=== PATIENT | female | born 1930 | race American Indian/Alaskan Native ===

== ENCOUNTER 2018-08-27 18:48 | Emergency (ER) | payer MEDICARE, MEDICAID ==
[2018-08-27 19:32] VITALS: BP 161/65
[2018-08-27] MEDS ORDERED: Ondansetron 4 MG/2 ML SDV IV ONE (20:03)
[2018-08-27] MEDS ORDERED: Sodium Chloride 0.9% 1,000 ML IV ONE (20:03)
[2018-08-27 20:22] LABS: ANION GAP 20.5; CHLORIDE,CL 93 mmol/L (101-111); SODIUM,NA 133 mmol/L (135-145)
--- NOTE | 2018-08-27 21:17 | EDM.PDOC ---
ED HPI GENERAL MEDICAL PROBLEM - General Chief Complaint: Gastrointestinal Problem Stated Complaint: THROWING UP Time Seen by Provider: 08/27/18 19:10 Source of Information: Reports: Patient, Family History Limitations: Reports: No Limitations - History of Present Illness INITIAL COMMENTS - FREE TEXT/NARRATIVE: ED with c/o nausea and vomiting multiple times today, unable to keep even liquids down. 2 loose stools No blood noted in emesis or stool. No fever, some chills today. No chest pain, Denied lower abdominal pain. Only hurts from vomiting. No urinary sx. Patient lives alone. [email or web address] stops in to check on patient. - Related Data Allergies Allergy/AdvReac Type Severity Reaction Status Date / Time No Known Allergies Allergy Verified 11/05/13 18:13 Home Meds: Home Meds Atenolol [Tenormin] 100 mg PO DAILY 11/05/13 [History] Simvastatin 10 mg PO DAILY 11/05/13 [History] Amitriptyline [Elavil] 10 mg PO BEDTIME 08/27/18 [History] Furosemide 20 mg PO TID 08/27/18 [History] Potassium Chloride [Klor-Con 10] 20 meq PO DAILY 08/27/18 [History] rOPINIRole [Requip] 0.5 mg PO TID 08/27/18 [History] Past Medical History - Past Health History Medical/Surgical History: Denies Medical/Surgical History Cardiovascular History: Reports: Hypertension Musculoskeletal History: Reports: Arthritis, Osteoporosis - Past Surgical History Cardiovascular Surgical History: Reports: None Musculoskeletal Surgical History: Reports: None Social & Family History - Family History Family Medical History: Noncontributory ED ROS GENERAL - Review of Systems Review Of Systems: See Below Constitutional: Reports: Chills, Decreased Appetite HEENT: Reports: Glasses, Hearing Loss Cardiovascular: Denies: Chest Pain, Dyspnea on Exertion, Edema, Palpitations GI/Abdominal: Reports: Anorexia, Decreased Appetite, Nausea, Vomiting. Denies: Black Stool, Bloody Stool, Constipation, Diarrhea, Distension : Reports: No Symptoms Musculoskeletal: Reports: No Symptoms Skin: Reports: No Symptoms Neurological: Reports: Dizziness (with sitting from lying today). Denies: Headache, Paresthesia ED EXAM, GI/ABD - Physical Exam Exam: See Below Exam Limited By: No Limitations General Appearance: Alert, No Apparent Distress Eyes: Bilateral: EOMI Ears: Normal External Exam, Normal TMs, Hearing Loss Nose: Normal Inspection Throat/Mouth: Other (dry mucus membranes) Head: Atraumatic, Normocephalic Neck: Normal Inspection Respiratory/Chest: No Respiratory Distress, Lungs Clear, Normal Breath Sounds Cardiovascular: Normal Peripheral Pulses, Regular Rate, Rhythm GI/Abdominal Exam: Soft, Tender (mild lower with palpation). No: Distended, Guarding, Rebound Back Exam: No: CVA Tenderness (L), CVA Tenderness (R) Extremities: Normal Range of Motion Neurological: Alert, Oriented, Normal Cognition Psychiatric: Normal Affect, Normal Mood Skin Exam: Warm, Dry, Intact, Normal Color Course - Vital Signs Last Recorded V/S: Last Vital Signs Temp 97.8 F 08/27/18 19:00 Pulse 85 08/27/18 19:00 Resp 18 08/27/18 19:00 BP 161/65 H 08/27/18 19:00 Pulse Ox 95 08/27/18 19:00 Orthostatic Blood Pressure [ 162/67 Standing] Orthostatic Blood Pressure [ 159/58 Sitting] Orthostatic Blood Pressure [ 156/56 Supine] - Orders/Labs/Meds Orders: Active Orders 24 hr Category Date Time Status EKG Documentation Completion [RC] URGENT Care 08/27/18 19:36 Active Orthostatic Vital Signs [RC] ASDIRECTED Care 08/27/18 20:26 Active CULTURE URINE [RM] Urgent Lab 08/27/18 21:24 Received Labs: Laboratory Tests 08/27/18 08/27/18 08/27/18 Range/Units 19:53 19:53 19:53 WBC 16.0 H (5.0-10.0) 10^3/uL RBC 3.82 L (4.2-5.4) 10^6/uL Hgb 11.7 L (12.0-16.0) g/dL Hct 35.1 L (37.0-47.0) % MCV 91.9 D (80-100) fL MCH 30.6 (27.0-34.0) pg MCHC 33.3 (33.0-35.0) g/dL Plt Count 269 D (150-450) 10^3/uL Neut % (Auto) 95.0 H (42.2-75.2) % Lymph % (Auto) 3.5 L (20.5-50.1) % [place] % (Auto) 1.4 L (2-8) % Eos % (Auto) 0.0 L (1.0-3.0) % Baso % (Auto) 0.1 (0.0-1.0) % Sodium 133 L (135-145) mmol/L Potassium 3.5 L (3.6-5.0) mmol/L Chloride 93 L (101-111) mmol/L Carbon Dioxide 23.0 (21.0-31.0) mmol/L Anion Gap 20.5 BUN 20 H (7-18) mg/dL Creatinine 1.7 H (0.6-1.3) mg/dL Est Cr Clr Drug Dosing 16.43 mL/min Estimated GFR (MDRD) 28 BUN/Creatinine Ratio 11.76 Glucose 179 H (74-105) mg/dL Calcium 8.5 (8.4-10.2) mg/dl Total Bilirubin 0.9 (0.2-1.0) mg/dL AST 42 (10-42) IU/L ALT 18 (10-60) IU/L Alkaline Phosphatase 86 (42-121) IU/L CK-MB (CK-2) 1.20 (0.4-4.7) ng/mL Troponin I < 0.02 (0.00-0.02) ng/ml B-Natriuretic Peptide 454 H (0-100) pg/ml Total Protein 8.5 H (6.7-8.2) g/dl Albumin 3.7 (3.2-5.5) g/dl Globulin 4.8 Albumin/Globulin Ratio 0.77 Amylase 46 (28-100) U/L Lipase 25 (22-51) U/L Urine Color (YELLOW) Urine Appearance (CLEAR) Urine pH (5.0-9.0) Ur Specific [place] (1.005-1.030) Urine Protein (NEGATIVE) Urine Glucose (UA) (NEGATIVE) Urine Ketones (NEGATIVE) Urine Occult Blood (NEGATIVE) Urine Nitrite (NEGATIVE) Urine Bilirubin (NEGATIVE) Urine Urobilinogen (0.2-1.0) mg/dL Ur Leukocyte Esterase (NEGATIVE) Urine RBC /HPF Urine WBC (0-5/HPF) /HPF Ur Epithelial Cells (NOT SEEN) /HPF Amorphous Sediment (NOT SEEN) /HPF Urine Bacteria (0-FEW/HPF) /HPF Fine Granular Casts (NOT SEEN) /LPF Urine Mucus (NOT SEEN) /LPF 08/27/18 Range/Units 21:24 WBC (5.0-10.0) 10^3/uL RBC (4.2-5.4) 10^6/uL Hgb (12.0-16.0) g/dL Hct (37.0-47.0) % MCV (80-100) fL MCH (27.0-34.0) pg MCHC (33.0-35.0) g/dL Plt Count (150-450) 10^3/uL Neut % (Auto) (42.2-75.2) % Lymph % (Auto) (20.5-50.1) % [place] % (Auto) (2-8) % Eos % (Auto) (1.0-3.0) % Baso % (Auto) (0.0-1.0) % Sodium (135-145) mmol/L Potassium (3.6-5.0) mmol/L Chloride (101-111) mmol/L Carbon Dioxide (21.0-31.0) mmol/L Anion Gap BUN (7-18) mg/dL Creatinine (0.6-1.3) mg/dL Est Cr Clr Drug Dosing mL/min Estimated GFR (MDRD) BUN/Creatinine Ratio Glucose (74-105) mg/dL Calcium (8.4-10.2) mg/dl Total Bilirubin (0.2-1.0) mg/dL AST (10-42) IU/L ALT (10-60) IU/L Alkaline Phosphatase (42-121) IU/L CK-MB (CK-2) (0.4-4.7) ng/mL Troponin I (0.00-0.02) ng/ml B-Natriuretic Peptide (0-100) pg/ml Total Protein (6.7-8.2) g/dl Albumin (3.2-5.5) g/dl Globulin Albumin/Globulin Ratio Amylase (28-100) U/L Lipase (22-51) U/L Urine Color Yellow (YELLOW) Urine Appearance Slightly cloudy (CLEAR) Urine pH 7.0 (5.0-9.0) Ur Specific [place] 1.015 (1.005-1.030) Urine Protein 100 H (NEGATIVE) Urine Glucose (UA) Negative (NEGATIVE) Urine Ketones Negative (NEGATIVE) Urine Occult Blood Small H (NEGATIVE) Urine Nitrite Negative (NEGATIVE) Urine Bilirubin Negative (NEGATIVE) Urine Urobilinogen 0.2 (0.2-1.0) mg/dL Ur Leukocyte Esterase Small H (NEGATIVE) Urine RBC 10-20 H /HPF Urine WBC 50-75 H (0-5/HPF) /HPF Ur Epithelial Cells Few (NOT SEEN) /HPF Amorphous Sediment Occasional (NOT SEEN) /HPF Urine Bacteria Many H (0-FEW/HPF) /HPF Fine Granular Casts Rare H (NOT SEEN) /LPF Urine Mucus Rare (NOT SEEN) /LPF Meds: Medications Discontinued Medications Generic Name Dose Route Start Last Admin Trade Name Freq PRN Reason Stop Dose Admin Sodium Chloride 1,000 mls @ 150 mls/hr 08/27/18 20:03 08/27/18 20:17 Normal Saline IV 08/28/18 02:42 150 mls/hr .BOLUS ONE Administration Piperacillin Sod/Tazobactam 100 mls @ 200 mls/hr 08/27/18 22:12 08/27/18 22: 22 Sod 3.375 gm/ Sodium Chloride IV 08/27/18 22:41 200 mls/hr ONETIME ONE Administration Ondansetron HCl 4 mg 08/27/18 20:03 08/27/18 20:17 Zofran IV 08/27/18 20:04 4 mg ONETIME ONE Administration - Radiology Interpretation Free Text/Narrative:: [facility] Final Radiology Report Call: [phone] assistance Online chat: [email or web address] Name: GERARD SORIA Age: 88Years F Date: 08/27/2018 SSN: -- : [id number] Study: XR ABDOMEN 1 VIEW Requesting Physician: EYSSICA LI Images: 1 Addl Studies: Provided Clinical History: Contrast: Contrast Medium: Contrast Amount: Contrast Method: CONFIDENTIALITY STATEMENT This report is intended only for use by the referring physician, and only in accordance with law. If you received this in error, call [phone]. Page 1 of 1 EXAM: XR Abdomen, 1 View EXAM DATE/TIME: 08/27/2018 8:05 PM CLINICAL HISTORY: 88 years old, female; Signs and symptoms; Vomiting and other: HTN TECHNIQUE: Imaging protocol: Frontal supine view of the abdomen/pelvis. COMPARISON: No relevant prior studies available. FINDINGS: Gastrointestinal tract: No pneumoperitoneum. No evidence of bowel obstruction. Organs: Cholecystectomy clips. Bones/joints: Multilevel degenerative changes of the lumbar spine. IMPRESSION: No evidence of pneumoperitoneum or bowel obstruction. Thank you for allowing us to participate in the care of your patient. Dictated and Authenticated by: Tayo Ramirez MD 08/27/2018 8:20 PM Central Time ( & [facility] Final Radiology Report Call: [phone] assistance Online chat: [email or web address] Name: GERARD SORIA Age: 88Years F Date: 08/27/2018 SSN: -- : [id number] Study: XR CHEST 1 VIEW FRONTAL Requesting Physician: YESSICA LI Images: 1 Addl Studies: Provided Clinical History: Contrast: Contrast Medium: Contrast Amount: Contrast Method: CONFIDENTIALITY STATEMENT This report is intended only for use by the referring physician, and only in accordance with law. If you received this in error, call [phone]. Page 1 of 1 EXAM: XR Chest, 1 View EXAM DATE/TIME: 08/27/2018 8:04 PM CLINICAL HISTORY: 88 years old, female; Signs and symptoms; Other: Vomitting, HTN TECHNIQUE: Imaging protocol: XR of the chest, 1 view. COMPARISON: No relevant prior studies available. FINDINGS: Lungs: Clear lungs. Pleural space: No pneumothorax. No sizable pleural effusion. Heart/Mediastinum: No cardiomegaly. Bones/joints: Unremarkable. IMPRESSION: Clear lungs. Thank you for allowing us to participate in the care of your patient. Dictated and Authenticated by: Tayo Ramirez MD 08/27/2018 8:19 PM Central Time ( & [place]) Departure - Departure Time of Disposition: 23:00 Disposition: DC/Tfer to Acute Hospital 02 Condition: Undetermined Clinical Impression: Vomiting, Diverticulosis of sigmoid colon, Bladder fistula - Discharge Information *PRESCRIPTION DRUG MONITORING PROGRAM REVIEWED*: No *COPY OF PRESCRIPTION DRUG MONITORING REPORT IN PATIENT CASSANDRA: No Referrals: PCP,None [Primary Care Provider] - Forms: ED Department Discharge - My Orders Last 24 Hours: My Active Orders 08/27/18 19:36 EKG Documentation Completion [RC] URGENT 08/27/18 20:26 Orthostatic Vital Signs [RC] ASDIRECTED 08/27/18 21:24 CULTURE URINE [RM] Urgent - Assessment/Plan Last 24 Hours: My Active Orders 08/27/18 19:36 EKG Documentation Completion [RC] URGENT 08/27/18 20:26 Orthostatic Vital Signs [RC] ASDIRECTED 08/27/18 21:24 CULTURE URINE [RM] Urgent
[2018-08-27] MEDS ORDERED: Piperacillin/Tazobactam 3.375 GM in Sodium Chloride 0.9% 100 ML IV ONE (22:12)
== END 2018-08-27 23:00 ==
LOC: DL.ED 18:48
DX: K57.30 Diverticulosis of large intestine without perforation or abscess without bleeding (principal); N32.2 Vesical fistula, not elsewhere classified; I10 Essential (primary) hypertension; Z79.899 Other long term (current) drug therapy
CPT/HCPCS: 36415; 71045; 74018; 74176; 80053; 81001; 82150; 82553; 83690; 83880; 84484; 85025; 87086; 93005; 96365; 96366; 96368; 96375; 99285; J2405; J2543; J7030; J7050

== ENCOUNTER 2019-10-07 10:16 | Emergency (ER) | payer MEDICARE, MEDICAID ==
[2019-10-07] MEDS ORDERED: Sodium Chloride 0.9% 10 ML Syringe FLUSH PRN (11:06)
--- NOTE | 2019-10-07 11:09 | EDM.PDOC ---
ED HPI GENERAL MEDICAL PROBLEM - General Chief Complaint: Abdominal Pain Stated Complaint: STOMACH PROBLEMS Time Seen by Provider: 10/07/19 11:00 Source of Information: Reports: Patient History Limitations: Reports: No Limitations - History of Present Illness INITIAL COMMENTS - FREE TEXT/NARRATIVE: Patient comes emergency department today with complaints of abdominal pain. Marilyn s patient yesterday started generalized abdominal pain. Today her pain is getting worse and it is constant. She has nausea. Chills without a documented fever. Nausea without vomiting. She feels bloated and distended. No hematuria dysuria or urinary frequency. No constipation her last bowel movement was yesterday and normal. She has no chest pain no shortness of breath or difficulty breathing. No cough or congestion. Had a similar episode like this in the past but she does not recall what it was from. She has had an appendectomy otherwise no other surgeries in her abdomen. Frontal Abdomen Pain Score (Numeric/FACES): 7 - Related Data Allergies Allergy/AdvReac Type Severity Reaction Status Date / Time levofloxacin [From Levaquin] Allergy Other Verified 10/07/19 11:05 sertraline Allergy Other Verified 10/07/19 11:05 telithromycin Allergy Other Verified 10/07/19 11:05 Home Meds: Home Meds atenoloL [Tenormin] 100 mg PO DAILY 11/05/13 [History] Amitriptyline [Elavil] 10 mg PO BEDTIME 08/27/18 [History] Furosemide 60 mg PO BID 08/27/18 [History] Potassium Chloride [Klor-Con 10] 20 meq PO DAILY 08/27/18 [History] rOPINIRole [Requip] 0.5 mg PO TID 08/27/18 [History] Aspirin 81 mg PO DAILY 08/30/18 [History] Isosorbide Mononitrate [Isosorbide Mononitrate ER] 60 mg PO DAILY 08/30/18 [History] Ascorbic Acid [Vitamin C] 1,000 mg PO DAILY 08/31/18 [History] Ibandronate Sodium [Boniva] 150 mg PO .MONTHLY 10/09/18 [History] Iron Polysaccharide Complex [Iferex 150] 150 mg PO DAILY 10/09/18 [History] Wheat Dextrin [Benefiber] 1 dose PO ASDIRECTED PRN 10/09/18 [History] calcitrioL [Calcitriol] 0.25 mcg PO .SAT-FRI 10/09/18 [History] Past Medical History - Past Health History Medical/Surgical History: Denies Medical/Surgical History HEENT History: Reports: Cataract, Hard of Hearing, Other (See Below) Other HEENT History: Pt wears glasses Cardiovascular History: Reports: Arrhythmia, High Cholesterol, Hypertension, Other (See Below) Other Cardiovascular History: HX OF SVT Respiratory History: Reports: None Gastrointestinal History: Reports: Diverticulosis Genitourinary History: Reports: Chronic Renal Insuffiency SEARCH DIRECTOR History: Reports: Musculoskeletal History: Reports: Arthritis, Osteoporosis Neurological History: Reports: None Psychiatric History: Reports: Anxiety Endocrine/Metabolic History: Reports: Diabetes, Type II, Osteoporosis Hematologic History: Reports: None Immunologic History: Reports: None Oncologic (Cancer) History: Dermatologic History: Reports: None - Infectious Disease History Infectious Disease History: Reports: Chicken Pox, Measles, Mumps, Other (See Below) Other Infectious Disease History: Typhoid fever - Past Surgical History Female Surgical History: Oncologic Surgical History: Social & Family History - Family History Family Medical History: Noncontributory - Caffeine Use Caffeine Use: Reports: Coffee, Tea ED ROS GENERAL - Review of Systems Review Of Systems: Comprehensive ROS is negative, except as noted in HPI. ED EXAM, GI/ABD - Physical Exam Exam: See Below Exam Limited By: No Limitations General Appearance: Alert, WD/WN, Mild Distress Eyes: Bilateral: EOMI Ears: Normal External Exam Nose: Normal Inspection Throat/Mouth: Normal Inspection, Normal Oropharynx Head: Atraumatic, Normocephalic Neck: Normal Inspection Respiratory/Chest: No Respiratory Distress, Lungs Clear, Normal Breath Sounds, Chest Non-Tender Cardiovascular: Normal Peripheral Pulses, Regular Rate, Rhythm, Tachycardia GI/Abdominal Exam: Distended (minimally. ), Guarding, Rigid (Semi-rigid), Rebound (throughout the abd. ), Abnormal Bowel Sounds (hypoactive) (Female) Exam: Deferred Rectal (Female) Exam: Deferred Back Exam: Normal Inspection Extremities: Normal Inspection, Normal Range of Motion, Normal Capillary Refill Neurological: Alert, Oriented, Normal Cognition, No Motor/Sensory Deficits Psychiatric: Normal Affect, Normal Mood Skin Exam: Warm, Dry, Intact, Normal Color, No Rash Course - Vital Signs Last Recorded V/S: Last Vital Signs Temp 98.5 F 10/07/19 11:01 Pulse 109 H 10/07/19 11:01 Resp 20 10/07/19 11:01 BP 168/72 H 10/07/19 11:01 Pulse Ox 100 10/07/19 11:01 - Orders/Labs/Meds Orders: Active Orders 24 hr Category Date Time Status Peripheral IV Care [RC] . DIRECTED Care 10/07/19 11:06 Active CULTURE BLOOD [BC] Stat Lab 10/07/19 11:21 Received CULTURE BLOOD [BC] Stat Lab 10/07/19 11:26 Received CULTURE URINE [RM] Stat Lab 10/07/19 13:10 Received Lactated Ringers [Ringers, Lactated] 1,000 ml Med 10/07/19 14:24 Ordered IV .BOLUS Lactated Ringers [Ringers, Lactated] 1,000 ml Med 10/07/19 11:45 Active IV ASDIRECTED Sodium Chloride 0.9% [Saline Flush] Med 10/07/19 11:06 Active 10 ml FLUSH ASDIRECTED PRN Blood Culture x2 Reflex Set [OM.PC] Stat Oth 10/07/19 11:05 Ordered Peripheral IV Insertion Adult [OM.PC] Stat Oth 10/07/19 11:05 Ordered Medication Orders Lactated Ringer's (Ringers, Lactated) 1,000 mls @ 125 mls/hr IV ASDIRECTED TUNG Last Admin: 10/07/19 13:19 Dose: 125 mls/hr Documented by: TESFAYE Lactated Ringer's (Ringers, Lactated) 1,000 mls @ 999 mls/hr IV .BOLUS ONE Stop: 10/07/19 15:24 Sodium Chloride (Saline Flush) 10 ml FLUSH ASDIRECTED PRN PRN Reason: Keep Vein Open Last Admin: 10/07/19 11:23 Dose: 10 ml Documented by: ANNETTE Labs: Laboratory Tests 10/07/19 10/07/19 10/07/19 Range/Units 11:21 11:21 11:21 WBC 16.9 H (5.0-10.0) 10^3/uL RBC 3.55 L (4.2-5.4) 10^6/uL Hgb 10.7 L (12.0-16.0) g/dL Hct 32.5 L (37.0-47.0) % MCV 91.5 (80-100) fL MCH 30.1 (27.0-34.0) pg MCHC 32.9 L (33.0-35.0) g/dL Plt Count 282 (150-450) 10^3/uL Neut % (Auto) 93.6 H (42.2-75.2) % Lymph % (Auto) 4.2 L (20.5-50.1) % [place] % (Auto) 2.1 (2-8) % Eos % (Auto) 0.0 L (1.0-3.0) % Baso % (Auto) 0.1 (0.0-1.0) % Sodium 135 L (136-145) mmol/L Potassium 4.3 (3.5-5.1) mmol/L Chloride 98 (98-107) mmol/L Carbon Dioxide 27 (21-32) mmol/L Anion Gap 14.3 H (7-13) mEq/L BUN 38 H (7-18) mg/dL Creatinine 2.36 H (0.55-1.02) mg/dL Est Cr Clr Drug Dosing TNP Estimated GFR (MDRD) 19 BUN/Creatinine Ratio 16.1 (No establ ref range) Glucose 125 H (74-99) mg/dL Lactic Acid 2.0 (0.4-2.0) mmol/L Calcium 8.5 (8.5-10.1) mg/dL Total Bilirubin 1.0 (0.2-1.0) mg/dL AST 27 (15-37) U/L ALT 36 (14-59) U/L Alkaline Phosphatase 128 H (46-116) U/L C-Reactive Protein 22.9 H (0.0-0.9) mg/dL Total Protein 7.9 (6.4-8.2) g/dL Albumin 2.9 L (3.4-5.0) g/dL Globulin 5.0 Albumin/Globulin Ratio 0.58 Urine Color (YELLOW) Urine Appearance (CLEAR) Urine pH (5.0-9.0) Ur Specific [place] (1.005-1.030) Urine Protein (NEGATIVE) Urine Glucose (UA) (NEGATIVE) Urine Ketones (NEGATIVE) Urine Occult Blood (NEGATIVE) Urine Nitrite (NEGATIVE) Urine Bilirubin (NEGATIVE) Urine Urobilinogen (0.2-1.0) mg/dL Ur Leukocyte Esterase (NEGATIVE) Urine RBC /HPF Urine WBC (0-5/HPF) /HPF Ur Epithelial Cells (NOT SEEN) /HPF Amorphous Sediment (NOT SEEN) /HPF Urine Bacteria (0-FEW/HPF) /HPF 10/07/19 Range/Units 13:10 WBC (5.0-10.0) 10^3/uL RBC (4.2-5.4) 10^6/uL Hgb (12.0-16.0) g/dL Hct (37.0-47.0) % MCV (80-100) fL MCH (27.0-34.0) pg MCHC (33.0-35.0) g/dL Plt Count (150-450) 10^3/uL Neut % (Auto) (42.2-75.2) % Lymph % (Auto) (20.5-50.1) % [place] % (Auto) (2-8) % Eos % (Auto) (1.0-3.0) % Baso % (Auto) (0.0-1.0) % Sodium (136-145) mmol/L Potassium (3.5-5.1) mmol/L Chloride (98-107) mmol/L Carbon Dioxide (21-32) mmol/L Anion Gap (7-13) mEq/L BUN (7-18) mg/dL Creatinine (0.55-1.02) mg/dL Est Cr Clr Drug Dosing Estimated GFR (MDRD) BUN/Creatinine Ratio (No establ ref range) Glucose (74-99) mg/dL Lactic Acid (0.4-2.0) mmol/L Calcium (8.5-10.1) mg/dL Total Bilirubin (0.2-1.0) mg/dL AST (15-37) U/L ALT (14-59) U/L Alkaline Phosphatase (46-116) U/L C-Reactive Protein (0.0-0.9) mg/dL Total Protein (6.4-8.2) g/dL Albumin (3.4-5.0) g/dL Globulin Albumin/Globulin Ratio Urine Color Yellow (YELLOW) Urine Appearance Cloudy (CLEAR) Urine pH 7.5 (5.0-9.0) Ur Specific [place] 1.020 (1.005-1.030) Urine Protein Trace H (NEGATIVE) Urine Glucose (UA) Negative (NEGATIVE) Urine Ketones Negative (NEGATIVE) Urine Occult Blood Moderate H (NEGATIVE) Urine Nitrite Positive H (NEGATIVE) Urine Bilirubin Negative (NEGATIVE) Urine Urobilinogen 0.2 (0.2-1.0) mg/dL Ur Leukocyte Esterase Large H (NEGATIVE) Urine RBC 30-40 H /HPF Urine WBC 40-50 H (0-5/HPF) /HPF Ur Epithelial Cells Rare (NOT SEEN) /HPF Amorphous Sediment Few (NOT SEEN) /HPF Urine Bacteria Many H (0-FEW/HPF) /HPF Meds: Medications Generic Name Dose Route Start Last Admin Trade Name Freq PRN Reason Stop Dose Admin Lactated Ringer's 1,000 mls @ 125 mls/hr 10/07/19 11:45 10/07/19 13:19 Ringers, Lactated IV 125 mls/hr ASDIRECTED TUNG Administration Lactated Ringer's 1,000 mls @ 999 mls/hr 10/07/19 14:24 Ringers, Lactated IV 10/07/19 15:24 .BOLUS ONE Sodium Chloride 10 ml 10/07/19 11:06 10/07/19 11:23 Saline Flush FLUSH 10 ml ASDIRECTED PRN Administration Keep Vein Open Discontinued Medications Generic Name Dose Route Start Last Admin Trade Name Freq PRN Reason Stop Dose Admin Piperacillin Sod/Tazobactam 100 mls @ 200 mls/hr 10/07/19 11:43 10/07/19 13:21 Sod 3.375 gm/ Sodium Chloride IV 10/07/19 12:12 200 mls/hr ONETIME ONE Administration Morphine Sulfate 2 mg 10/07/19 14:24 Morphine IVPUSH 10/07/19 14:25 ONETIME ONE Ondansetron HCl 4 mg 10/07/19 14:24 Zofran IV 10/07/19 14:25 ONETIME ONE - Radiology Interpretation Free Text/Narrative:: Diverticulitis of the sigmoid colon no current signs of abscess. CT Scan report per radiology. - Re-Assessments/Exams Free Text/Narrative Re-Assessment/Exam: 10/07/19 IV labs drawn and blood cultures x 2 LR 150mls/hr Zosyn 3.375grams IVPB. CT scan with concerns of diverticulitis without evidence of abscess or perf. Creat 2.4 which is up quite a bit from baseline at aprox 1.5. I called and spoke with Dr. Beltran here in [place] he does not want to admit because of no surgeon. I called and spoke with Dr. Rojas at [facility] in [place]. HPI ER COURSE findings and concerns were relayed to him. He accepted the patient in transfer at this time with no new orders. Departure - Departure Time of Disposition: 13:57 Disposition: DC/Tfer to Acute Hospital 02 Clinical Impression: Bladder fistula, Diverticulitis large intestine w/o perforation or abscess w/o bleeding, JASMIN (acute kidney injury) - Discharge Information Referrals: PCP,None [Primary Care Provider] - Forms: ED Department Discharge, Interfacility Transfer [facility] Sepsis Event Note (ED) - Evaluation Sepsis Screening Result: No Definite Risk - Focused Exam Vital Signs: Vital Signs Temp Pulse Resp BP Pulse Ox 10/07/19 11:01 98.5 F 109 H 20 168/72 H 100 - My Orders Last 24 Hours: My Active Orders 10/07/19 11:05 Blood Culture x2 Reflex Set [OM.PC] Stat Peripheral IV Insertion Adult [OM.PC] Stat 10/07/19 11:06 Peripheral IV Care [RC] . DIRECTED Sodium Chloride 0.9% [Saline Flush] 10 ml FLUSH ASDIRECTED PRN 10/07/19 11:21 CULTURE BLOOD [BC] Stat 10/07/19 11:26 CULTURE BLOOD [BC] Stat 10/07/19 11:45 Lactated Ringers [Ringers, Lactated] 1,000 ml IV ASDIRECTED 10/07/19 13:10 CULTURE URINE [RM] Stat 10/07/19 14:24 Lactated Ringers [Ringers, Lactated] 1,000 ml IV .BOLUS - Assessment/Plan Last 24 Hours: My Active Orders 10/07/19 11:05 Blood Culture x2 Reflex Set [OM.PC] Stat Peripheral IV Insertion Adult [OM.PC] Stat 10/07/19 11:06 Peripheral IV Care [RC] . DIRECTED Sodium Chloride 0.9% [Saline Flush] 10 ml FLUSH ASDIRECTED PRN 10/07/19 11:21 CULTURE BLOOD [BC] Stat 10/07/19 11:26 CULTURE BLOOD [BC] Stat 10/07/19 11:45 Lactated Ringers [Ringers, Lactated] 1,000 ml IV ASDIRECTED 10/07/19 13:10 CULTURE URINE [RM] Stat 10/07/19 14:24 Lactated Ringers [Ringers, Lactated] 1,000 ml IV .BOLUS Assessment:: Diverticulitis without abscess or complication. Chronic bladder fistula with UTI Acute kidney injury. Plan: Transfer to [facility] for further care management.
[2019-10-07] MEDS ORDERED: Piperacillin/Tazobactam 3.375 GM in Sodium Chloride 0.9% 100 ML IV ONE (11:43)
[2019-10-07] MEDS ORDERED: Lactated Ringers 1,000 ML IV SCH (11:45)
[2019-10-07 12:08] LABS: ANION GAP 14.3 mEq/L (7-13); CHLORIDE,CL 98 mmol/L (98-107); SODIUM,NA 135 mmol/L (136-145)
--- NOTE | 2019-10-07 12:59 | CT ---
EXAMINATION: Abdomen Pelvis wo Cont SEX: Female AGE: 89 years CLINICAL HISTORY: 89-year-old female with abdominal distention complaining of left lower quadrant pain (WBC 16,000). Patient has abnormal renal function with GFR 14. Scan technique: Volume acquisition of data emergency unenhanced CT scan of the abdomen and pelvis (kidneys/ureters/bladder) obtained with patient lying supine on the Siemens multislice scanner [place], [place]. All data archived in the PACS system for storage, reformatting axial/sagittal/coronal planes and study. Interpretation: Abnormal. DIVERTICULITIS sigmoid colon. 1. Multiple diverticula identified in the sigmoid colon (LLQ) with some subtle adjacent pericolonic inflammatory "dirty" fat indicating acute inflammation or diverticulitis. No current signs of abscess. 2. Senescent uterus left of midline. No pelvic or abdominal mass lesion. No bowel obstruction, ascites or free intraperitoneal air. 3. Densely calcified "cast" normal caliber ectatic aorta iliac vessels. No aneurysm or dissection. Old compression fracture (with marginal buttressing spondylosis) T12 vertebral body. Multilevel lower thoracic and lumbar disc disease again with reactive arthritic change. 4. Surgical clips gallbladder fossa RUQ. Unenhanced liver, stomach, spleen, pancreas and adrenal glands unremarkable. No obvious renal cortical mass (unenhanced), urolithiasis or obstructive uropathy. 5. Lung bases clear. No pericardial or pleural effusions.
[2019-10-07] MEDS ORDERED: Lactated Ringers 1,000 ML IV ONE (14:24)
[2019-10-07] MEDS ORDERED: Morphine 2 MG/ML Syringe IVPUSH ONE (14:24)
[2019-10-07] MEDS ORDERED: Ondansetron 4 MG/2 ML SDV IV ONE (14:24)
[2019-10-07 15:40] VITALS: BP 143/66; PULSE 90
== END 2019-10-07 16:00 ==
LOC: DL.ED 10:16
DX: K57.32 Diverticulitis of large intestine without perforation or abscess without bleeding (principal); N17.9 Acute kidney failure, unspecified; N32.2 Vesical fistula, not elsewhere classified; I12.9 Hypertensive chronic kidney disease with stage 1 through stage 4 chronic kidney disease, or unspecified chronic kidney disease; E11.22 Type 2 diabetes mellitus with diabetic chronic kidney disease; N18.9 Chronic kidney disease, unspecified; M19.90 Unspecified osteoarthritis, unspecified site; Z88.8 Allergy status to other drugs, medicaments and biological substances; Z88.1 Allergy status to other antibiotic agents; Z79.82 Long term (current) use of aspirin; Z79.899 Other long term (current) drug therapy
CPT/HCPCS: 36415; 74176; 80053; 81001; 83605; 85025; 86140; 87040; 87086; 96361; 96365; 96375; 99285; J2270; J2405; J2543; J7050; J7120; 87088; 87186

== ENCOUNTER 2019-10-13 10:53 | Inpatient (IN) | payer MEDICARE, MEDICAID ==
[2019-10-13] MEDS ORDERED: Magnesium Hydroxide 400 MG/5 ML Susp 30 ML Cup PO PRN (10:57)
[2019-10-13] MEDS ORDERED: Docusate Sodium 100 MG Cap PO PRN (10:57)
[2019-10-13] MEDS ORDERED: Acetaminophen 325 MG Tab PO PRN (10:57)
--- NOTE | 2019-10-13 11:07 | PCM.HP ---
H&P History of Present Illness - General Date of Service: 10/13/19 Admit Problem/Dx: Admission Diagnosis/Problem Admission Diagnosis/Problem Weakness Source of Information: Patient History Limitations: Reports: No Limitations - History of Present Illness Initial Comments - Free Text/Narative: Marcella is 89 y/o F with PMH of CKD, DM-II, HTN, recently treated for diverticulitis and UTI and completed antibiotics. She is a direct admit from clinic because of increasing generalized weakness. Patient was discharged from [facility] on 10/11/19 following treatment for diverticulitis and UTI. She was discharged to home with home health services. Patient is yet to be seen by home health services. However as per the son who is currently helping take care of her, patient is getting increasingly weak and requiring assistance for every activity. She went to see her PCP today who requested patient be admitted to swing bed for physical therapy for strengthening. Patient denies fever, chills, cough, chest pain, shortness of breath. She reports low appetite. She denies abdominal pain, nausea, vomiting, diarrhea, constipation. She has no dysuria or urinary symptoms. Vitals at the clinic was unremarkable. Labs done in the clinic showed potassium 3.0, creatinine 1.6, sodium 131. WBC 13, hemoglobin 10.2. Serum glucose 171. Urine negative. Onset of Symptoms: Reports: Gradual Duration of Symptoms: Reports: Day(s): Location: Reports: Generalized Quality: Reports: Ache Severity: Moderate Improves with: Reports: None Worsens with: Reports: None Associated Symptoms: Reports: Weakness - Related Data Allergies/Adverse Reactions: Allergies Allergy/AdvReac Type Severity Reaction Status Date / Time levofloxacin [From Levaquin] Allergy Other Verified 10/13/19 11:32 sertraline Allergy Other Verified 10/13/19 11:32 telithromycin Allergy Other Verified 10/13/19 11:32 Home Medications: Home Meds atenoloL [Tenormin] 100 mg PO DAILY 11/05/13 [History] Amitriptyline [Elavil] 10 mg PO BEDTIME 08/27/18 [History] Furosemide 60 mg PO BID 08/27/18 [History] Potassium Chloride [Klor-Con 10] 10 meq PO DAILY 08/27/18 [History] rOPINIRole [Requip] 0.5 mg PO TID 08/27/18 [History] Aspirin 81 mg PO DAILY 08/30/18 [History] Isosorbide Mononitrate [Isosorbide Mononitrate ER] 60 mg PO DAILY 08/30/18 [History] Ascorbic Acid [Vitamin C] 1,000 mg PO DAILY 08/31/18 [History] Iron Polysaccharide Complex [Iferex 150] 150 mg PO DAILY 10/09/18 [History] Wheat Dextrin [Benefiber] 1 dose PO ASDIRECTED PRN 10/09/18 [History] calcitrioL [Calcitriol] 0.25 mcg PO .MON-Sat10/09/18 [History] Past Medical History - Past Health History Medical/Surgical History: Denies Medical/Surgical History HEENT History: Reports: Cataract, Hard of Hearing, Other (See Below) Other HEENT History: Pt wears glasses Cardiovascular History: Reports: Arrhythmia, High Cholesterol, Hypertension, Other (See Below) Other Cardiovascular History: HX OF SVT Respiratory History: Reports: None Gastrointestinal History: Reports: Diverticulosis Genitourinary History: Reports: Chronic Renal Insuffiency [employer]ER History: Reports: Musculoskeletal History: Reports: Arthritis, Osteoporosis Neurological History: Reports: None Psychiatric History: Reports: Anxiety Endocrine/Metabolic History: Reports: Diabetes, Type II, Osteoporosis Hematologic History: Reports: None Immunologic History: Reports: None Oncologic (Cancer) History: Dermatologic History: Reports: None - Infectious Disease History Infectious Disease History: Reports: Chicken Pox, Measles, Mumps, Other (See Below) Other Infectious Disease History: Typhoid fever - Past Surgical History Female Surgical History: Oncologic Surgical History: Social & Family History - Family History Family Medical History: Noncontributory - Caffeine Use Caffeine Use: Reports: Coffee, Tea H&P Review of Systems - Review of Systems: Review Of Systems: See Below General: Reports: Weakness, Decreased Appetite HEENT: Reports: No Symptoms Pulmonary: Reports: No Symptoms Cardiovascular: Reports: No Symptoms Gastrointestinal: Reports: No Symptoms Genitourinary: Reports: No Symptoms Musculoskeletal: Reports: No Symptoms Skin: Reports: No Symptoms Psychiatric: Reports: No Symptoms Neurological: Reports: No Symptoms Hematologic/Lymphatic: Reports: No Symptoms Immunologic: Reports: No Symptoms Exam - Exam Exam: See Below - Exam Quality Assessment: DVT Prophylaxis General: Alert, Oriented, 4 HEENT: PERRLA, Hearing Intact, Mucosa Moist & [place], Nares Patent, Normal Nasal Septum, Posterior Pharynx Clear, Conjunctiva Clear, EOMI, EACs Clear, TMs Clear Neck: Supple, Trachea Midline, 2 Lungs: Clear to Auscultation, Normal Respiratory Effort Cardiovascular: Regular Rate, Regular Rhythm GI/Abdominal Exam: Normal Bowel Sounds, Soft, Non-Tender, No Organomegaly, No Distention, No Abnormal Bruit, No Mass, Pelvis Stable (Female) Exam: Normal External Exam, Normal Speculum Exam, Normal Bimanual Exam Rectal (Female) Exam: Normal Exam, Normal Rectal Tone Back Exam: Normal Inspection, Full Range of Motion, NT Extremities: Normal Inspection, Normal Range of Motion, Non-Tender, Normal Capillary Refill, Pedal Edema Skin: Warm, Dry, Intact Neurological: Cranial Nerves Intact, Reflexes Equal Bilateral Neuro Extensive - Mental Status: Alert, Oriented x3, Normal Mood/Affect, Normal Cognition Neuro Extensive - Motor, Sensory, Reflexes: CN II-XII Intact, Normal Gait, Normal Reflexes Psychiatric: Alert, Normal Affect, Normal Mood - Problem List (1) Weakness generalized SNOMED Code(s): 23734261 ICD Code: R53.1 - WEAKNESS Status: Acute Current Visit: Yes (2) Dehydration with hyponatremia SNOMED Code(s): 05437551 ICD Code: E86.0 - DEHYDRATION; E87.1 - HYPO-OSMOLALITY AND HYPONATREMIA Status: Acute Current Visit: Yes (3) Acute hypokalemia SNOMED Code(s): 44662772 ICD Code: E87.6 - HYPOKALEMIA Status: Acute Current Visit: Yes (4) Type 2 diabetes mellitus SNOMED Code(s): 62712787 ICD Code: E11.9 - TYPE 2 DIABETES MELLITUS WITHOUT COMPLICATIONS Status: Acute Current Visit: Yes (5) Hypertension SNOMED Code(s): 40912165 ICD Code: I10 - ESSENTIAL (PRIMARY) HYPERTENSION Status: Acute Current Visit: Yes Problem List Initiated/Reviewed/Updated: Yes Orders Last 24hrs: Active Orders 24 hr Category Date Time Status Patient Status [ADT] Routine ADT 10/13/19 10:57 Ordered Ambulate [RC] ASDIRECTED Care 10/13/19 10:57 Ordered Notify Provider Vital Signs [RC] ASDIRECTED Care 10/13/19 11:00 Ordered Vital Signs [RC] Q4H Care 10/13/19 10:57 Ordered Consult to Physical Therapy [PT Evaluation and Cons 10/13/19 11:01 Ordered Treatment] [CONS] Routine OT Evaluation and Treatment [CONS] Routine Cons 10/13/19 11:02 Ordered POTASSIUM,K [CHEM] Routine Lab 10/14/19 07:00 Ordered Acetaminophen [Tylenol] Med 10/13/19 10:57 Ordered 650 mg PO Q4H PRN Docusate Sodium [Colace] Med 10/13/19 10:57 Ordered 100 mg PO DAILY PRN Magnesium Hydroxide [Milk of Magnesia] Med 10/13/19 10:57 Ordered 30 ml PO BID PRN Potassium Chloride [Klor-Con 10] Med 10/13/19 12:00 Ordered 40 meq PO TIDMEALS Medication Orders Acetaminophen (Tylenol) 650 mg PO Q4H PRN PRN Reason: Pain (mild 1-3 )/fever Docusate Sodium (Colace) 100 mg PO DAILY PRN PRN Reason: Constipation Magnesium Hydroxide (Milk Of Magnesia) 30 ml PO BID PRN PRN Reason: Constipation Potassium Chloride (Klor-Con 10) 40 meq PO TIDMEALS TUNG Assessment/Plan Comment:: #Generalized weakness following hospitalization -Admit to swing bed -Physical therapy -Patient on therapy #Hypokalemia due to diuretics. Patient on Lasix -Replace with oral potassium 40 mEq 3 times daily -Recheck potassium level #Bilateral leg edema -Continue Lasix -Lymphedema wrap #Mild chronic hyponatremia due to dehydration -Na 131 -Follow up #Type II diabetes -Managed with diet #HTN -BP within acceptable limits -Continue home medication #CKD -Stable GFR and creatinine #Restless leg syndrome -Continue home medication #Depression -Continue amitriptyline #General diet #Full code
[2019-10-13] MEDS ORDERED: WHEAT DEXTRIN PO PRN (11:48)
[2019-10-13] MEDS: Potassium Chloride 10 MEQ Tab.ER PO SCH ×2 (14:30→17:42)
[2019-10-13] MEDS: rOPINIRole 0.25 MG Tab PO SCH ×2 (14:39→20:20)
[2019-10-13] MEDS: Calcitriol 0.25 MCG Cap PO SCH (14:39)
[2019-10-13] MEDS: Furosemide 20 MG Tab PO SCH (14:40)
[2019-10-13] MEDS: Amitriptyline 10 MG Tab PO SCH (20:20)
[2019-10-13] MEDS: Amoxicillin/Clavulanate K 875-125 MG Tab PO SCH (20:20)
[2019-10-14] MEDS: Aspirin 81 MG Tab.EC PO SCH (08:43)
[2019-10-14] MEDS: Furosemide 20 MG Tab PO SCH ×2 (08:43→13:40)
[2019-10-14] MEDS: Ascorbic Acid 500 MG Tab PO SCH (08:44)
[2019-10-14] MEDS: rOPINIRole 0.25 MG Tab PO SCH ×3 (08:44→21:42)
[2019-10-14] MEDS: Amoxicillin/Clavulanate K 875-125 MG Tab PO SCH ×2 (08:44→21:41)
[2019-10-14] MEDS: Iron Polysaccharides Complex 150 MG Cap PO SCH (08:44)
[2019-10-14] MEDS: Potassium Chloride 10 MEQ Tab.ER PO SCH ×3 (08:44→17:59)
[2019-10-14] MEDS ORDERED: Potassium Chloride 10 MEQ Tab.ER PO SCH (09:00)
[2019-10-14] MEDS: Atenolol 50 MG Tab PO SCH (10:36)
[2019-10-14] MEDS: Isosorbide Mononitrate 60 MG Tab.ER PO SCH (10:36)
[2019-10-14] MEDS: Calcitriol 0.25 MCG Cap PO SCH (13:40)
[2019-10-14] MEDS: Amitriptyline 10 MG Tab PO SCH (21:41)
[2019-10-15] MEDS: Potassium Chloride 10 MEQ Tab.ER PO SCH ×3 (08:48→17:12)
[2019-10-15] MEDS: rOPINIRole 0.25 MG Tab PO SCH ×3 (08:49→21:02)
[2019-10-15] MEDS: Furosemide 20 MG Tab PO SCH ×2 (08:49→15:01)
[2019-10-15] MEDS: Atenolol 50 MG Tab PO SCH (08:49)
[2019-10-15] MEDS: Aspirin 81 MG Tab.EC PO SCH (08:49)
[2019-10-15] MEDS: Amoxicillin/Clavulanate K 875-125 MG Tab PO SCH ×2 (08:49→21:02)
[2019-10-15] MEDS: Ascorbic Acid 500 MG Tab PO SCH (08:49)
[2019-10-15] MEDS: Iron Polysaccharides Complex 150 MG Cap PO SCH (08:49)
[2019-10-15] MEDS: Isosorbide Mononitrate 60 MG Tab.ER PO SCH (08:49)
[2019-10-15] MEDS: Calcitriol 0.25 MCG Cap PO SCH (12:33)
[2019-10-15] MEDS: Amitriptyline 10 MG Tab PO SCH (21:02)
[2019-10-16] MEDS: Aspirin 81 MG Tab.EC PO SCH (08:49)
[2019-10-16] MEDS: Iron Polysaccharides Complex 150 MG Cap PO SCH (08:49)
[2019-10-16] MEDS: Potassium Chloride 10 MEQ Tab.ER PO SCH ×3 (08:49→17:42)
[2019-10-16] MEDS: Amoxicillin/Clavulanate K 875-125 MG Tab PO SCH ×2 (08:50→20:45)
[2019-10-16] MEDS: Isosorbide Mononitrate 60 MG Tab.ER PO SCH (08:50)
[2019-10-16] MEDS: Ascorbic Acid 500 MG Tab PO SCH (08:50)
[2019-10-16] MEDS: rOPINIRole 0.25 MG Tab PO SCH ×3 (08:50→20:45)
[2019-10-16] MEDS: Furosemide 20 MG Tab PO SCH ×2 (08:51→13:11)
[2019-10-16] MEDS: Atenolol 50 MG Tab PO SCH (08:51)
[2019-10-16] MEDS: Calcitriol 0.25 MCG Cap PO SCH (13:10)
[2019-10-16] MEDS: Amitriptyline 10 MG Tab PO SCH (20:46)
[2019-10-17] MEDS: Potassium Chloride 10 MEQ Tab.ER PO SCH ×3 (08:20→18:35)
[2019-10-17] MEDS: Furosemide 20 MG Tab PO SCH ×2 (08:21→14:20)
[2019-10-17] MEDS: Isosorbide Mononitrate 60 MG Tab.ER PO SCH (09:12)
[2019-10-17] MEDS: rOPINIRole 0.25 MG Tab PO SCH ×3 (09:13→21:01)
[2019-10-17] MEDS: Aspirin 81 MG Tab.EC PO SCH (09:14)
[2019-10-17] MEDS: Ascorbic Acid 500 MG Tab PO SCH (09:15)
[2019-10-17] MEDS: Amoxicillin/Clavulanate K 875-125 MG Tab PO SCH ×2 (09:15→21:01)
[2019-10-17] MEDS: Atenolol 50 MG Tab PO SCH (09:17)
[2019-10-17] MEDS: Iron Polysaccharides Complex 150 MG Cap PO SCH (09:17)
[2019-10-17] MEDS: PRESERVISION AREDS PO SCH (21:00)
[2019-10-17] MEDS: Amitriptyline 10 MG Tab PO SCH (21:00)
[2019-10-18] MEDS: Potassium Chloride 10 MEQ Tab.ER PO SCH ×3 (08:48→18:07)
[2019-10-18] MEDS: PRESERVISION AREDS PO SCH ×2 (08:48→20:23)
[2019-10-18] MEDS: rOPINIRole 0.25 MG Tab PO SCH ×3 (08:49→20:22)
[2019-10-18] MEDS: Iron Polysaccharides Complex 150 MG Cap PO SCH (08:50)
[2019-10-18] MEDS: Aspirin 81 MG Tab.EC PO SCH (08:50)
[2019-10-18] MEDS: Furosemide 20 MG Tab PO SCH ×2 (08:50→14:36)
[2019-10-18] MEDS: Ascorbic Acid 500 MG Tab PO SCH (08:51)
[2019-10-18] MEDS: Isosorbide Mononitrate 60 MG Tab.ER PO SCH (08:51)
[2019-10-18] MEDS: Amoxicillin/Clavulanate K 875-125 MG Tab PO SCH ×2 (08:51→20:22)
[2019-10-18] MEDS: Atenolol 50 MG Tab PO SCH (12:24)
[2019-10-18] MEDS ORDERED: Ondansetron 4 MG Tab.DIS PO ONE (18:22)
[2019-10-18] MEDS: Amitriptyline 10 MG Tab PO SCH (20:22)
[2019-10-19 09:34] LABS: ANION GAP 12.3 mEq/L (7-13)
[2019-10-19] MEDS: Atenolol 50 MG Tab PO SCH (10:21)
[2019-10-19] MEDS: Amoxicillin/Clavulanate K 875-125 MG Tab PO SCH ×2 (10:22→22:00)
[2019-10-19] MEDS: Potassium Chloride 10 MEQ Tab.ER PO SCH ×3 (10:23→18:33)
[2019-10-19] MEDS: Furosemide 20 MG Tab PO SCH ×2 (10:26→13:46)
[2019-10-19] MEDS: Isosorbide Mononitrate 60 MG Tab.ER PO SCH (10:26)
[2019-10-19] MEDS: Ascorbic Acid 500 MG Tab PO SCH (10:27)
[2019-10-19] MEDS: rOPINIRole 0.25 MG Tab PO SCH ×3 (10:28→21:59)
[2019-10-19] MEDS: Iron Polysaccharides Complex 150 MG Cap PO SCH (10:28)
[2019-10-19] MEDS: PRESERVISION AREDS PO SCH ×2 (10:29→22:00)
[2019-10-19] MEDS: Aspirin 81 MG Tab.EC PO SCH (10:29)
--- NOTE | 2019-10-19 10:33 | PCM.PN ---
- General Info Date of Service: 10/19/19 Subjective Update: feeling well, participating in PT/OT no sob, no associated CP had upset stomach last night, that has improved and resolved by now Functional Status: Reports: Pain Controlled, Tolerating Diet - Review of Systems Pulmonary: Denies: Shortness of Breath Cardiovascular: Denies: Chest Pain, Edema Psychiatric: Denies: Confusion - Patient Data Vitals - Most Recent: Last Vital Signs Temp 98.6 F 10/19/19 08:04 Pulse 85 10/19/19 08:04 Resp 16 10/19/19 08:04 BP 112/39 L 10/19/19 08:04 Pulse Ox 96 10/19/19 08:04 Weight - Most Recent: 138 lb 9.6 oz I&O - Last 24 Hours: Intake & Output 10/18/19 10/19/19 10/19/19 22:59 06:59 14:59 Intake Total 600 120 Balance 600 120 Lab Results Last 24 Hours: Laboratory Results - last 24 hr 10/19/19 Range/Units 09:12 Sodium 130 L (136-145) mmol/L Potassium 4.3 (3.5-5.1) mmol/L Chloride 90 L (98-107) mmol/L Carbon Dioxide 32 (21-32) mmol/L Anion Gap 12.3 (7-13) mEq/L BUN 39 H (7-18) mg/dL Creatinine 2.21 H (0.55-1.02) mg/dL Est Cr Clr Drug Dosing 12.40 mL/min Estimated GFR (MDRD) 21 Glucose 184 H (74-99) mg/dL Calcium 8.9 (8.5-10.1) mg/dL Med Orders - Current: Current Medications Acetaminophen (Tylenol) 650 mg PO Q4H PRN PRN Reason: Pain (mild 1-3 )/fever Last Admin: 10/16/19 20:46 Dose: 650 mg Documented by: Amitriptyline HCl (Elavil) 10 mg PO BEDTIME [facility] Last Admin: 10/18/19 20:22 Dose: 10 mg Documented by: Amoxicillin/Clavulanate Potassium (Augmentin 875 Mg/125 Mg) 1 tab PO BID [facility] Last Admin: 10/18/19 20:22 Dose: 1 tab Documented by: Ascorbic Acid (Vitamin C) 1,000 mg PO DAILY [facility] Last Admin: 10/18/19 08:51 Dose: 1,000 mg Documented by: Aspirin (Halfprin) 81 mg PO DAILY [facility] Last Admin: 10/18/19 08:50 Dose: 81 mg Documented by: Atenolol (Tenormin) 100 mg PO DAILY [facility] Last Admin: 10/18/19 12:24 Dose: Not Given Documented by: Calcitriol (Rocaltrol) 0.25 mcg PO [id number]@1200 [facility] Last Admin: 10/16/19 13:10 Dose: 0.25 mcg Documented by: Docusate Sodium (Colace) 100 mg PO DAILY PRN PRN Reason: Constipation Furosemide (Lasix) 60 mg PO BIDDIURETIC [facility] Last Admin: 10/18/19 14:36 Dose: 60 mg Documented by: Isosorbide Mononitrate (Imdur) 60 mg PO DAILY [facility] Last Admin: 10/18/19 08:51 Dose: 60 mg Documented by: Magnesium Hydroxide (Milk Of Magnesia) 30 ml PO BID PRN PRN Reason: Constipation Preservision Areds 2 ( Own Med ) 1 each PO BID [facility] Last Admin: 10/18/19 20:23 Dose: 1 each Documented by: Polysaccharide Iron Complex (Ferrex 150) 150 mg PO DAILY [facility] Last Admin: 10/18/19 08:50 Dose: 150 mg Documented by: Potassium Chloride (Klor-Con 10) 40 meq PO TIDMEALS [facility] Last Admin: 10/18/19 18:07 Dose: Not Given Documented by: Ropinirole HCl (Requip) 0.5 mg PO TID [facility] Last Admin: 10/18/19 20:22 Dose: 0.5 mg Documented by: Discontinued Medications Ondansetron HCl (Zofran Odt) 4 mg PO ONETIME ONE Stop: 10/18/19 18:23 Last Admin: 10/18/19 20:21 Dose: 4 mg Documented by: Potassium Chloride (Klor-Con 10) 10 meq PO DAILY [facility] - Exam Quality Assessment: No: Supplemental Oxygen General: Alert, Oriented Neck: Supple Lungs: Clear to Auscultation, Normal Respiratory Effort Cardiovascular: Regular Rate, Regular Rhythm Extremities: No Pedal Edema Sepsis Event Note - Evaluation Sepsis Screening Result: No Definite Risk - Focused Exam Vital Signs: Vital Signs Temp Pulse Resp BP Pulse Ox 10/19/19 08:04 98.6 F 85 16 112/39 L 96 Date Exam was Performed: 10/19/19 Time Exam was Performed: 10:29 - Problem List & Annotations (1) Acute hypokalemia SNOMED Code(s): 95449898 Code(s): E87.6 - HYPOKALEMIA Status: Acute Current Visit: Yes (2) Dehydration with hyponatremia SNOMED Code(s): 04358991 Code(s): E86.0 - DEHYDRATION; E87.1 - HYPO-OSMOLALITY AND HYPONATREMIA Status: Acute Current Visit: Yes (3) Hypertension SNOMED Code(s): 68295873 Code(s): I10 - ESSENTIAL (PRIMARY) HYPERTENSION Status: Acute Current Visit: Yes (4) Type 2 diabetes mellitus SNOMED Code(s): 26785003 Code(s): E11.9 - TYPE 2 DIABETES MELLITUS WITHOUT COMPLICATIONS Status: Acute Current Visit: Yes (5) Weakness generalized SNOMED Code(s): 48003875 Code(s): R53.1 - WEAKNESS Status: Acute Current Visit: Yes - Problem List Review Problem List Initiated/Reviewed/Updated: Yes - Plan Plan:: #Generalized weakness following hospitalization -continue -Physical therapy and occupational therapy #Hypokalemia due to diuretics. Patient on Lasix -Replace with oral potassium - improved -Recheck potassium level periodically #Bilateral leg edema -Continue Lasix -Lymphedema wrap resolving #Mild chronic hyponatremia due to dehydration -Follow up periodically #Type II diabetes -Managed with diet follow BS and use supplemental insulin as needed #HTN -BP within acceptable limits -Continue home medication #CKD -follow periodically #Depression -Continue amitriptyline #General diet
[2019-10-19] MEDS: Calcitriol 0.25 MCG Cap PO SCH (13:45)
[2019-10-19] MEDS: Amitriptyline 10 MG Tab PO SCH (22:00)
[2019-10-20] MEDS: Potassium Chloride 10 MEQ Tab.ER PO SCH ×3 (09:06→17:30)
[2019-10-20] MEDS: Furosemide 20 MG Tab PO SCH ×2 (09:07→13:54)
[2019-10-20] MEDS: Amoxicillin/Clavulanate K 875-125 MG Tab PO SCH (09:09)
[2019-10-20] MEDS: Iron Polysaccharides Complex 150 MG Cap PO SCH (09:09)
[2019-10-20] MEDS: Aspirin 81 MG Tab.EC PO SCH (09:10)
[2019-10-20] MEDS: Isosorbide Mononitrate 60 MG Tab.ER PO SCH (09:10)
[2019-10-20] MEDS: rOPINIRole 0.25 MG Tab PO SCH ×3 (09:11→21:23)
[2019-10-20] MEDS: Atenolol 50 MG Tab PO SCH (09:12)
[2019-10-20] MEDS: PRESERVISION AREDS PO SCH ×2 (09:12→21:23)
[2019-10-20] MEDS: Ascorbic Acid 500 MG Tab PO SCH (09:14)
[2019-10-20] MEDS: Calcitriol 0.25 MCG Cap PO SCH (12:33)
[2019-10-20] MEDS: Amitriptyline 10 MG Tab PO SCH (21:23)
[2019-10-21] MEDS: Iron Polysaccharides Complex 150 MG Cap PO SCH (08:57)
[2019-10-21] MEDS: Furosemide 20 MG Tab PO SCH ×2 (08:57→14:50)
[2019-10-21] MEDS: Potassium Chloride 10 MEQ Tab.ER PO SCH ×3 (08:57→17:26)
[2019-10-21] MEDS: Ascorbic Acid 500 MG Tab PO SCH (08:57)
[2019-10-21] MEDS: rOPINIRole 0.25 MG Tab PO SCH ×3 (08:58→20:37)
[2019-10-21] MEDS: Aspirin 81 MG Tab.EC PO SCH (08:58)
[2019-10-21] MEDS: PRESERVISION AREDS PO SCH ×2 (09:03→20:42)
[2019-10-21] MEDS: Atenolol 50 MG Tab PO SCH (09:09)
[2019-10-21] MEDS: Isosorbide Mononitrate 60 MG Tab.ER PO SCH (09:09)
[2019-10-21] MEDS: Calcitriol 0.25 MCG Cap PO SCH (13:12)
[2019-10-21] MEDS: Amitriptyline 10 MG Tab PO SCH (20:37)
[2019-10-21] MEDS: Metoprolol Tartrate 50 MG Tab PO SCH (20:39)
[2019-10-22] MEDS: Potassium Chloride 10 MEQ Tab.ER PO SCH ×3 (08:50→16:18)
[2019-10-22] MEDS: Furosemide 20 MG Tab PO SCH ×2 (08:51→14:17)
[2019-10-22] MEDS: Aspirin 81 MG Tab.EC PO SCH (08:52)
[2019-10-22] MEDS: Iron Polysaccharides Complex 150 MG Cap PO SCH (08:52)
[2019-10-22] MEDS: PRESERVISION AREDS PO SCH ×2 (08:53→21:32)
[2019-10-22] MEDS: rOPINIRole 0.25 MG Tab PO SCH ×3 (08:53→21:30)
[2019-10-22] MEDS: Ascorbic Acid 500 MG Tab PO SCH (08:53)
[2019-10-22] MEDS: Metoprolol Tartrate 50 MG Tab PO SCH ×2 (08:59→21:31)
[2019-10-22] MEDS: Isosorbide Mononitrate 30 MG Tab.ER PO SCH (08:59)
[2019-10-22] MEDS: Calcitriol 0.25 MCG Cap PO SCH (12:46)
[2019-10-22] MEDS: Amitriptyline 10 MG Tab PO SCH (21:31)
[2019-10-23 08:13] VITALS: BP 131/54; PULSE 109
[2019-10-23] MEDS: Furosemide 20 MG Tab PO SCH (08:44)
[2019-10-23] MEDS: Aspirin 81 MG Tab.EC PO SCH (08:44)
[2019-10-23] MEDS: Iron Polysaccharides Complex 150 MG Cap PO SCH (08:45)
[2019-10-23] MEDS: rOPINIRole 0.25 MG Tab PO SCH (08:45)
[2019-10-23] MEDS: Metoprolol Tartrate 50 MG Tab PO SCH (08:46)
[2019-10-23] MEDS: Potassium Chloride 10 MEQ Tab.ER PO SCH (08:46)
[2019-10-23] MEDS: Isosorbide Mononitrate 30 MG Tab.ER PO SCH (08:46)
[2019-10-23] MEDS: PRESERVISION AREDS PO SCH (08:47)
[2019-10-23] MEDS: Ascorbic Acid 500 MG Tab PO SCH (08:54)
--- NOTE | 2019-10-23 09:47 | PCM.DCSUM1 ---
Discharge Summary - Hospital Course Free Text/Narrative:: Marcella is 89 y/o F with PMH of CKD, DM-II, HTN, recently treated for diverticulitis and UTI and completed antibiotics. She is a direct admit from clinic because of increasing generalized weakness. Patient was discharged from [facility] on 10/11/19 following treatment for diverticulitis and UTI. She was discharged to home with home health services. However as per the son who was helping take care of her, patient was getting increasingly weak and req uiring assistance for every activity. She went to see her PCP who requested patient be admitted to swing bed for physical therapy for strengthening. #Generalized weakness following hospitalization -improved with Physical therapy and occupational therapy #Hypokalemia due to diuretics. Patient on Lasix -Replaced with oral potassium increased supplement dose -Recheck potassium level periodically #Bilateral leg edema -Continue Lasix resolved #Mild chronic hyponatremia due to dehydration, diuretics -Follow up periodically #Type II diabetes -Managed with diet #HTN -BP within acceptable limits -Continue atenolol #CKD -follow periodically #Depression -Continue amitriptyline Diagnosis: Stroke: No - Discharge Data Discharge Date: 10/23/19 Discharge Disposition: DC/Tfer to SNF 03 Condition: Good - Referral to Home Health Primary Care Physician: Meli Pham NP - Discharge Diagnosis/Problem(s) (1) Acute hypokalemia SNOMED Code(s): 44262771 ICD Code: E87.6 - HYPOKALEMIA Status: Acute Current Visit: Yes (2) Dehydration with hyponatremia SNOMED Code(s): 68212091 ICD Code: E86.0 - DEHYDRATION; E87.1 - HYPO-OSMOLALITY AND HYPONATREMIA Status: Acute Current Visit: Yes (3) Hypertension SNOMED Code(s): 90235900 ICD Code: I10 - ESSENTIAL (PRIMARY) HYPERTENSION Status: Acute Current Visit: Yes (4) Type 2 diabetes mellitus SNOMED Code(s): 60078955 ICD Code: E11.9 - TYPE 2 DIABETES MELLITUS WITHOUT COMPLICATIONS Status: Acute Current Visit: Yes (5) Weakness generalized SNOMED Code(s): 54937596 ICD Code: R53.1 - WEAKNESS Status: Acute Current Visit: Yes - Patient Summary/Data Consults: Consultations 10/13/19 11:01 Consult to Physical Therapy [PT Evaluation and Treatment] [CONS] Routine 10/13/19 11:02 OT Evaluation and Treatment [CONS] Routine - Discharge Plan *PRESCRIPTION DRUG MONITORING PROGRAM REVIEWED*: Not Applicable *COPY OF PRESCRIPTION DRUG MONITORING REPORT IN PATIENT CASSANDRA: Not Applicable Home Medications: Home Meds atenoloL [Tenormin] 100 mg PO DAILY 11/05/13 [History] Amitriptyline [Elavil] 10 mg PO BEDTIME 08/27/18 [History] Furosemide 60 mg PO BID 08/27/18 [History] rOPINIRole [Requip] 0.5 mg PO TID 08/27/18 [History] Isosorbide Mononitrate [Isosorbide Mononitrate ER] 60 mg PO DAILY 08/30/18 [History] Ascorbic Acid [Vitamin C] 1,000 mg PO DAILY 08/31/18 [History] Iron Polysaccharide Complex [Iferex 150] 150 mg PO DAILY 10/09/18 [History] Wheat Dextrin [Benefiber] 1 dose PO DAILY PRN 10/09/18 [History] calcitrioL [Calcitriol] 0.25 mcg PO .MON-Sat10/09/18 [History] Aspirin [Aspirin EC] 81 mg PO DAILY 10/13/19 [History] Simvastatin 10 mg PO BEDTIME 10/13/19 [History] Vit C/E/Zn/Coppr/Lutein/Zeaxan [Preservision Areds 2 Softgel] 1 cap PO BID 10/17/19 [History] Potassium Chloride [Klor-Con 10] 20 meq PO BID #60 tab 10/23/19 [Rx] Oxygen Therapy Mode: Room Air Patient Handouts: Fall Prevention in the Home, Adult, Wyry-my-Ashy, Understanding Your Risk for Falls Referrals: Meli Pham NP [Primary Care Provider] - - Discharge Summary/Plan Comment DC Time >30 min.: No - General Info Date of Service: 10/23/19 Subjective Update: feeling well, edema resolved no sob, no associated CP Functional Status: Reports: Pain Controlled, Tolerating Diet, Ambulating - Review of Systems General: Denies: Fever Pulmonary: Denies: Shortness of Breath Cardiovascular: Denies: Chest Pain, Edema - Patient Data Vitals - Most Recent: Last Vital Signs Temp 97.8 F 10/23/19 08:00 Pulse 109 H 10/23/19 08:46 Resp 24 H 10/23/19 08:00 BP 131/54 L 10/23/19 08:46 Pulse Ox 98 10/23/19 08:00 Weight - Most Recent: 138 lb 9.6 oz I&O - Last 24 hours: Intake & Output 10/22/19 10/23/19 10/23/19 22:59 06:59 14:59 Intake Total 500 180 Balance 500 180 Lab Results - Last 24 hrs: Laboratory Results - last 24 hr 10/22/19 Range/Units 13:50 COVID-19 (ERNIE) Negative (NEGATIVE) Med Orders - Current: Current Medications Acetaminophen (Tylenol) 650 mg PO Q4H PRN PRN Reason: Pain (mild 1-3 )/fever Last Admin: 10/16/19 20:46 Dose: 650 mg Documented by: Amitriptyline HCl (Elavil) 10 mg PO BEDTIME [facility] Last Admin: 10/22/19 21:31 Dose: 10 mg Documented by: Ascorbic Acid (Vitamin C) 1,000 mg PO DAILY [facility] Last Admin: 10/23/19 08:54 Dose: 1,000 mg Documented by: Aspirin (Halfprin) 81 mg PO DAILY [facility] Last Admin: 10/23/19 08:44 Dose: 81 mg Documented by: Calcitriol (Rocaltrol) 0.25 mcg PO [id number] [facility] Last Admin: 10/22/19 12:46 Dose: 0.25 mcg Documented by: Docusate Sodium (Colace) 100 mg PO DAILY PRN PRN Reason: Constipation Furosemide (Lasix) 60 mg PO BIDDIURETIC [facility] Last Admin: 10/23/19 08:44 Dose: 60 mg Documented by: Isosorbide Mononitrate (Imdur) 30 mg PO DAILY [facility] Last Admin: 10/23/19 08:46 Dose: 30 mg Documented by: Magnesium Hydroxide (Milk Of Magnesia) 30 ml PO BID PRN PRN Reason: Constipation Metoprolol Tartrate (Lopressor) 50 mg PO Q12HR [facility] Last Admin: 10/23/19 08:46 Dose: 50 mg Documented by: Preservision Areds 2 ( Own Med ) 1 each PO BID [facility] Last Admin: 10/23/19 08:47 Dose: 1 each Documented by: Polysaccharide Iron Complex (Ferrex 150) 150 mg PO DAILY [facility] Last Admin: 10/23/19 08:45 Dose: 150 mg Documented by: Potassium Chloride (Klor-Con 10) 40 meq PO TIDMEALS [facility] Last Admin: 10/23/19 08:46 Dose: 40 meq Documented by: Ropinirole HCl (Requip) 0.5 mg PO TID [facility] Last Admin: 10/23/19 08:45 Dose: 0.5 mg Documented by: Discontinued Medications Amoxicillin/Clavulanate Potassium (Augmentin 875 Mg/125 Mg) 1 tab PO BID [facility] Last Admin: 10/20/19 09:09 Dose: 1 tab Documented by: Atenolol (Tenormin) 100 mg PO DAILY [facility] Last Admin: 10/21/19 09:09 Dose: Not Given Documented by: Isosorbide Mononitrate (Imdur) 60 mg PO DAILY [facility] Last Admin: 10/21/19 09:09 Dose: Not Given Documented by: Ondansetron HCl (Zofran Odt) 4 mg PO ONETIME ONE Stop: 10/18/19 18:23 Last Admin: 10/18/19 20:21 Dose: 4 mg Documented by: Potassium Chloride (Klor-Con 10) 10 meq PO DAILY [facility] - Exam General: Reports: Alert, Oriented Neck: Reports: Supple Lungs: Reports: Clear to Auscultation, Normal Respiratory Effort Cardiovascular: Reports: Regular Rate, Regular Rhythm GI/Abdominal Exam: Normal Bowel Sounds, Soft, Non-Tender Extremities: No Pedal Edema Skin: Reports: Warm, Dry, Intact Psy/Mental Status: Reports: Alert, Normal Affect, Normal Mood
== END 2019-10-23 10:05 | DRG 948 ==
LOC: DL.MS 10:53 → UNDOADMIN 10:53 → DL.MS 10:57
PROVIDERS: ADMIT Student in an Organized Health Care Education/Training Program; ATTEND Student in an Organized Health Care Education/Training Program
DX: R53.1 Weakness (principal); E87.1 Hypo-osmolality and hyponatremia; E87.6 Hypokalemia; E86.0 Dehydration; F32.9 Major depressive disorder, single episode, unspecified; I12.9 Hypertensive chronic kidney disease with stage 1 through stage 4 chronic kidney disease, or unspecified chronic kidney disease; E11.22 Type 2 diabetes mellitus with diabetic chronic kidney disease; N18.9 Chronic kidney disease, unspecified; Z11.59 Encounter for screening for other viral diseases; R60.0 Localized edema; G25.81 Restless legs syndrome; Z88.1 Allergy status to other antibiotic agents; Z88.8 Allergy status to other drugs, medicaments and biological substances; Z79.82 Long term (current) use of aspirin; Z79.899 Other long term (current) drug therapy
CPT/HCPCS: 36415; 80048; 84132; 97110-GO; 97110-GP; 97116-GP; 97162-GP; 97165-GO; 97530-GO; 97535-GO; A9270-GY; U0002